=== PATIENT | male | born 1990 | race African-American/Black ===

== ENCOUNTER 2016-11-05 15:23 | Emergency (ER) | payer OTHER ==
[~2016-11-05] VITALS: Ht 170.2 cm; Wt 63.5 kg
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
[2016-11-05 16:35] VITALS: BP 127/68
[2016-11-05] MEDS ORDERED: CYCL10TA2 PO (16:51)
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
== END 2016-11-05 16:55 | disposition home or self-care (01) ==
LOC: ER 15:23
DX: R07.89 Other chest pain (principal); R51 Headache; R05 Cough
CPT/HCPCS: 71101; 99284

== ENCOUNTER 2020-07-27 15:34 | Emergency (ER) | payer MEDICAID, OTHER ==
[~2020-07-27] VITALS: Ht 172.7 cm; Wt 65.9 kg
[~2020-07-27 15:34] MED LIST: CYCL10TA2 PO
--- NOTE | 2020-07-27 17:28 | PHYS DOC ---
Past Medical History Past Medical History: Depression, Schizophrenia, Other Additional Past Medical Histor: adhd, conduct disorder (ROC ALEJO APRN) Past Surgical History: Other Additional Past Surgical Histo: chest tube placement and removal (ROC ALEJO APRN) Smoking Status: Current Every Day Smoker Alcohol Use: Occasionally Drug Use: None (ROC ALEJO APRN) General Adult EDM: Chief Complaint: NAUSEA/VOMITING/DIARRHA HPI: HPI: Patient is a 29 year old male patient who presents with nausea and vomiting since this morning. States he has had one episode of diarrhea earlier today and has had some vomiting since that time. States he has not taken anything. Does report his symptoms started this morning, he reports he had a 16 oz beer this morning, and had some wine last night. States no drug use. States he has not had any blood in his diarrhea or in his emesis. Last emesis was while in the waiting room. States generalized abdominal pain. Denies fever, denies cough. Denies body aches. Denies change in urination. (ROC ALEJO APRN) Review of Systems: Review of Systems: Constitutional: Denies fever or chills. [] Eyes: Denies change in visual acuity. [] HENT: Denies nasal congestion or sore throat. [] Respiratory: Denies cough or shortness of breath. [] Cardiovascular: Denies chest pain or edema. [] GI: Reports abdominal discomfort, generalized. States nausea and several episodes of emesis today. States one episode of diarrhea. ] : Denies dysuria. [] Musculoskeletal: Denies back pain or joint pain. [] Integument: Denies rash. [] Neurologic: Denies headache, focal weakness or sensory changes. [] Endocrine: Denies polyuria or polydipsia. [] Lymphatic: Denies swollen glands. [] Psychiatric: Denies depression or anxiety. [] (ROC ALEJO APRN) Heart Score: Risk Factors: Risk Factors: DM, Current or recent (<one month) smoker, HTN, HLP, family history of CAD, obesity. Risk Scores: Score 0 - 3: 2.5% MACE over next 6 weeks - Discharge Home Score 4 - 6: 20.3% MACE over next 6 weeks - Admit for Clinical Observation Score 7 - 10: 72.7% MACE over next 6 weeks - Early Invasive Strategies (ROC ALEJO APRN) Current Medications: Current Medications Medications (Trade) Dose Ordered Sig/Danae Start Time Stop Time Status Last Admin Dose Admin Ketorolac Tromethamine (Toradol 15mg Vial) 15 mg 1X ONCE 07/27/20 17:30 07/27/20 17:31 UNV Ondansetron HCl (Zofran) 4 mg 1X ONCE 07/27/20 17:30 07/27/20 17:31 UNV Sodium Chloride 1,000 ml @ 1,000 mls/hr 1X ONCE 07/27/20 17:30 07/27/20 18:29 UNV (ROC ALEJO APRN) Allergies: Allergies: Allergies Coded Allergies Type Severity Reaction Last Updated Verified No Known Drug Allergies 10/07/13 No (ROC ALEJO APRN) Physical Exam: PE: Constitutional: Well developed, well nourished, no acute distress, non-toxic appearance. [] HENT: Normocephalic, atraumatic, bilateral external ears normal, oropharynx moist, no oral exudates, nose normal. [] Eyes: PERRLA, EOMI, conjunctiva normal, no discharge. [] Neck: Normal range of motion, no tenderness, supple, no stridor. [] Cardiovascular:Heart rate regular rhythm, no murmur [] Lungs & Thorax: Bilateral breath sounds clear to auscultation [] Abdomen: Bowel sounds normal, soft, Generalized tenderness, no masses, no pulsatile masses. [] Skin: Warm, dry, no erythema, no rash. [] Back: No tenderness, no CVA tenderness. [] Extremities: No tenderness, no cyanosis, no clubbing, ROM intact, no edema. [] Neurologic: Alert and oriented X 3, normal motor function, normal sensory function, no focal deficits noted. [] Psychologic: Affect normal, judgement normal, mood normal. [] (ROC ALEJO APRN) EKG: EKG: [] (ROC ALEJO APRN) Radiology/Procedures: Radiology/Procedures: []Exam: CT abdomen and pelvis with contrast INDICATION: Abdominal pain and tenderness TECHNIQUE: Sequential axial images through the abdomen and pelvis obtained following the administration of 75 mL of Isovue-370 IV contrast. Sagittal and coronal reformatted images were reconstructed from the axial data and reviewed. Comparisons: None FINDINGS: Heart size is normal. No pericardial effusion. Visualized lung bases are clear. No pleural effusion. Liver, spleen, pancreas, gallbladder and adrenals are unremarkable. No perinephric inflammation or hydronephrosis. No renal or ureteral calculi are identified. Bladder is partially distended and appears thin-walled. Prostate is nonenlarged. Large and small bowel are unremarkable. Appendix is normal. No free intra-abdominal air or fluid. No obstruction. Abdominal aorta has a normal course and caliber. Abdominal vasculature is patent. No enlarged abdominal lymph nodes are identified. No suspicious osseous lesions or acute fractures. IMPRESSION: No acute process identified within the abdomen or pelvis. Exposure: One or more of the following in the visualized dose reduction techniques were utilized for this examination: 1. Automated exposure control 2. Adjustment of the MA and/or KV according to patient size 3. Use of iterative of reconstructive technique Electronically signed by: Leonor Rice MD (07/27/2020 7:28 PM) [facility] DICTATED and SIGNED BY: LEONOR RICE MD DATE: 07/27/20 [id number] (ROC ALEJO APRN) Course & Med Decision Making: Course & Med Decision Making Pertinent Labs and Imaging studies reviewed. (See chart for details) Following fluids and medications, patient reports he feels much better. States he no longer has abdominal pain or nausea. Does state he does not drink much water, advise patient he does need to continue to hydrate. Discussed findings with patient without significant abnormalities. Will provide Rx for antiemetics. Patient in agreement with this plan of care (ROC ALEJO APRN) Course & Med Decision Making I have reviewed the PA/TRANSMISSION LINE ENGINEER's note and Plan of Care. I was available for consultation as needed during the patient's visit in the emergency department. I agree with the clinical impression, plans and disposition. (BERTHA TELLO MD) Tracee Disclaimer: Tracee Disclaimer: This electronic medical record was generated, in whole or in part, using a voice recognition dictation system. (ROC ALEJO APRN) Departure Departure Impression: Primary Impression: Gastroenteritis Additional Impression: Vomiting Qualified Codes: R11.2 - Nausea with vomiting, unspecified Disposition: 01 DC HOME SELF CARE/HOMELESS Condition: STABLE Referrals: NO PCP (PCP) Patient Instructions: Nausea and Vomiting Additional Instructions: As we discussed, take the nausea medication as prescribed. Stay hydrated - gatorade/water/pedialyte. Follow up with your primary care provider as needed for other concerns. Scripts Ondansetron (ONDANSETRON ODT) 4 Mg Tab.rapdis 4 MG PO Q8HRS PRN for NAUSEA/VOMITING for 5 Days, #10 TAB Prov: ROC ALEJO APRN 07/27/20 ROC ALEJO APRN Jul 27, 2020 17:28 BERTHA TELLO MD Jul 28, 2020 00:06
[2020-07-27] MEDS ORDERED: KETOROLAC 15 MG/ML VIAL. IVP ONE (17:30)
[2020-07-27] MEDS ORDERED: ONDANSETRON PF 4 MG/2 ML VIAL. IV ONE (17:30)
[2020-07-27] MEDS ORDERED: IV NORMAL SALINE 1000ML BAG 1,000 ML IV ONE (17:30)
[2020-07-27 17:34] LABS: BASO % 1 % (0-3); EOS % 0 % (0-3); HEMATOCRIT 47.1 % (39.0-53.0); HEMOGLOBIN 15.5 g/dL (13.0-17.5); LYMPH # 0.9 x10^3/uL (1.0-4.8); LYMPH % 10 % (24-48); MEAN CORPUSCULAR HEMOGLOBIN 29 pg (25-35); MEAN CORPUSCULAR HGB CONC 33 g/dL (31-37); MEAN CORPUSCULAR VOLUME 89 fL (79-100); MONO # 0.6 x10^3/uL (0.0-1.1); MONO % 8 % (0-9); NEUT # 6.7 x10^3/uL (1.8-7.7); NEUT % 81 % (31-73); PLATELET COUNT 238 x10^3/uL (140-400); RED BLOOD COUNT 5.29 x10^6/uL (4.30-5.70); RED CELL DISTRIBUTION WIDTH 13.4 % (11.5-14.5); WHITE BLOOD COUNT 8.3 x10^3/uL (4.0-11.0)
[2020-07-27 18:53] LABS: CALCIUM 8.5 mg/dL (8.5-10.1); CREATININE 1.2 mg/dL (0.7-1.3); GFR 87.9; POTASSIUM 3.6 mmol/L (3.5-5.1)
[2020-07-27 18:58] LABS: ALBUMIN 3.5 g/dL (3.4-5.0); ALBUMIN/GLOBULIN RATIO 1.2 (1.0-1.7); MAGNESIUM 1.8 mg/dL (1.8-2.4); TOTAL BILIRUBIN 0.3 mg/dL (0.2-1.0); TOTAL PROTEIN 6.4 g/dL (6.4-8.2)
[2020-07-27] MEDS ORDERED: CONTRAST GIVEN. MC PRN (19:00)
[2020-07-27] MEDS ORDERED: IOHEXOL 300 MG/ML 100ML VIAL. IV ONE (19:30)
--- NOTE | 2020-07-27 19:31 | RAD ---
Exam: CT abdomen and pelvis with contrast INDICATION: Abdominal pain and tenderness TECHNIQUE: Sequential axial images through the abdomen and pelvis obtained following the administration of 75 mL of Isovue-370 IV contrast. Sagittal and coronal reformatted images were reconstructed from the axial data and reviewed. Comparisons: None FINDINGS: Heart size is normal. No pericardial effusion. Visualized lung bases are clear. No pleural effusion. Liver, spleen, pancreas, gallbladder and adrenals are unremarkable. No perinephric inflammation or hydronephrosis. No renal or ureteral calculi are identified. Bladder is partially distended and appears thin-walled. Prostate is nonenlarged. Large and small bowel are unremarkable. Appendix is normal. No free intra-abdominal air or fluid. No obstruction. Abdominal aorta has a normal course and caliber. Abdominal vasculature is patent. No enlarged abdominal lymph nodes are identified. No suspicious osseous lesions or acute fractures. IMPRESSION: No acute process identified within the abdomen or pelvis. Exposure: One or more of the following in the visualized dose reduction techniques were utilized for this examination: 1. Automated exposure control 2. Adjustment of the MA and/or KV according to patient size 3. Use of iterative of reconstructive technique Electronically signed by: Leonor Tadeo MD (07/27/2020 7:28 PM) [facility]
[2020-07-27] MEDS ORDERED: ONDA4TAB12 PO (19:44)
[2020-07-27 19:45] LABS: BILIRUBIN,URINE NEGATIVE (NEG); CLARITY,URINE CLEAR; COLOR,URINE YELLOW; NITRITE,URINE NEGATIVE (NEG); PROTEIN,URINE NEGATIVE (NEG-TRACE)
[2020-07-27 19:51] LABS: BACTERIA,URINE 0 /HPF (0-FEW); RBC,URINE 0 /HPF (0-2); WBC,URINE 0 /HPF (0-4)
[2020-07-27 20:00] VITALS: BP 120/66
== END 2020-07-27 20:06 | disposition home or self-care (01) ==
LOC: ER 15:34
DX: K52.9 Noninfective gastroenteritis and colitis, unspecified (principal); F20.9 Schizophrenia, unspecified; F32.9 Major depressive disorder, single episode, unspecified; F90.9 Attention-deficit hyperactivity disorder, unspecified type; F17.200 Nicotine dependence, unspecified, uncomplicated
CPT/HCPCS: 36415; 74177; 80053; 81001; 83690; 83735; 85025; 96361; 96374; 96375; 99285; G0480; J1885; J2405; J7030; Q9967

== ENCOUNTER 2021-12-03 15:05 | Emergency (ER) | payer OTHER, MEDICAID ==
[~2021-12-03] VITALS: Ht 170.2 cm; Wt 60.0 kg
[~2021-12-03 15:05] MED LIST changes: +CYCL10TA19 PO; -CYCL10TA2 PO; +ONDA4TAB12 PO
[2021-12-03 15:14] VITALS: BP 123/78
[2021-12-03] MEDS ORDERED: DIPHTH,PERTUSS(ACELL),TET TOX 0.5 ML DISP.SYRIN. VAX IM ONE (15:30)
[2021-12-03] MEDS ORDERED: SULF1TAB24 PO (15:51)
--- NOTE | 2021-12-03 15:52 | PHYS DOC ---
Past Medical History Past Medical History: Alcoholism, Depression, Schizophrenia, Other Additional Past Medical Histor: adhd, conduct disorder Past Surgical History: No Surgical History Additional Past Surgical Histo: chest tube placement and removal Smoking Status: Current Every Day Smoker Alcohol Use: Heavy Drug Use: None General Adult EDM: Chief Complaint: DENTAL PROBLEM HPI: HPI: Patient is a 31 year old male with history of alcoholism presented to the ED today to be evaluated for lower lip infection. Patient states he fell down 4 days ago and "busted his lip". He states since yesterday he has noticed the area is turning red and appears infected. Patient denies any fever. Denies any loss of consciousness when he fell, denies hitting his head on the ground. R efusing any care related to his fall apart from treating his infection Review of Systems: Review of Systems: Constitutional: Denies fever or chills. [] HENT: Denies nasal congestion or sore throat. [] Musculoskeletal: Denies back pain or joint pain. [] Integument: Reports lower lip infection Neurologic: Denies headache, focal weakness or sensory changes. [] Psychiatric: Denies depression or anxiety. [] Heart Score: C/O Chest Pain: N/A Risk Factors: Risk Factors: DM, Current or recent (<one month) smoker, HTN, HLP, family history of CAD, obesity. Risk Scores: Score 0 - 3: 2.5% MACE over next 6 weeks - Discharge Home Score 4 - 6: 20.3% MACE over next 6 weeks - Admit for Clinical Observation Score 7 - 10: 72.7% MACE over next 6 weeks - Early Invasive Strategies Current Medications: Current Medications Medications (Trade) Dose Ordered Sig/Danae Start Time Stop Time Status Last Admin Dose Admin Diphtheria/ Tetanus/Acell Pertussis (Boostrix) 0.5 ml ONCE ONCE 12/03/21 15:30 12/03/21 15:31 DC 12/03/21 15:44 0.5 ML Allergies: Allergies: Allergies Coded Allergies Type Severity Reaction Last Updated Verified No Known Drug Allergies 10/07/13 No Physical Exam: PE: Constitutional: Well developed, well nourished, no acute distress, non-toxic appearance. [] HENT: Normocephalic, bilateral external ears normal, oropharynx moist, no oral exudates, nose normal. [] Skin: Lower lip with mild soft tissue swelling, there is dried blood on a couple areas on the lower lip, there is redness of the lower lip, there is no drainage, the lip feels warm but no fluctuance noted Back: No tenderness, no CVA tenderness. [] Extremities: No tenderness, no cyanosis, no clubbing, ROM intact, no edema. [] Neurologic: Alert and oriented X 3, normal motor function, normal sensory function, no focal deficits noted. [] Psychologic: Affect normal, judgement normal, mood normal. [] Current Patient Data: Vital Signs: Vital Signs Date Time Temp Pulse Resp B/P (MAP) Pulse Ox O2 Delivery O2 Flow Rate FiO2 12/03/21 15:14 98.0 65 20 123/78 (93) 99 98.0 EKG: EKG: [] Radiology/Procedures: Radiology/Procedures: [] Course & Med Decision Making: Course & Med Decision Making Pertinent Labs and Imaging studies reviewed. (See chart for details) This a 31-year-old male patient presenting to the ED today with lower lip infection. Patient fell down 4 days ago and had a laceration on the lip. He states the area is not infected. He refused any work-up related to falling down [address] of the head. He is alcoholic. He is currently not drunk and alert and oriented x4. He is clinically sober walking on his own. Tetanus was updated. Discharged on Bactrim and instructed to keep the area clean and dry Tracee Disclaimer: Tracee Disclaimer: This electronic medical record was generated, in whole or in part, using a voice recognition dictation system. Departure Departure Impression: Primary Impression: Infected lip laceration Qualified Codes: S01.511A - Laceration without foreign body of lip, initial encounter; L08.9 - Local infection of the skin and subcutaneous tissue, unspecified Disposition: HOME / SELF CARE / HOMELESS Condition: STABLE Referrals: NO PCP (PCP) Follow-up with your doctor in 1 to 2 weeks Patient Instructions: Skin Infections Additional Instructions: You were treated for lower lip infection. Take the prescribed antibiotics until completed. Please follow-up with your primary care doctor in 1 to 2 weeks. Come back to the ED at any point symptoms worsen. You were given a tetanus injection in the ED today Scripts Sulfamethoxazole/Trimethoprim (BACTRIM DS TABLET) 1 Each Tablet 1 TAB PO BID for 10 Days, #20 TAB 0 Refills Prov: BOB HOLLIS APRN 12/03/21 BOB HOLLIS APRN Dec 03, 2021 15:52
== END 2021-12-03 16:03 | disposition home or self-care (01) ==
LOC: ER 15:05
DX: S01.511A Laceration without foreign body of lip, initial encounter (principal); L08.9 Local infection of the skin and subcutaneous tissue, unspecified; F20.9 Schizophrenia, unspecified; F90.9 Attention-deficit hyperactivity disorder, unspecified type; F17.200 Nicotine dependence, unspecified, uncomplicated; F10.20 Alcohol dependence, uncomplicated; Y90.9 Presence of alcohol in blood, level not specified; W18.39XA Other fall on same level, initial encounter; Y93.89 Activity, other specified; Y92.89 Other specified places as the place of occurrence of the external cause; Y99.8 Other external cause status
CPT/HCPCS: 90471; 90715; 99283-25